=== PATIENT | female | born 1990 | race Caucasian/White ===

== ENCOUNTER 2017-05-22 05:55 | Inpatient (IN) | payer BC ==
[2017-05-22] MEDS ORDERED: LIDOCAINE 1% (PF) 10 MG/ML (30 ML SDV) SQ PRN (06:06)
[2017-05-22] MEDS ORDERED: METHYLERGONOVINE 0.2 MG/ML 1 ML AMP IM PRN (06:06)
[2017-05-22] MEDS ORDERED: CARBOPROST TROMETHAMINE 250 MCG/ML 1 ML AMP IM PRN (06:06)
[2017-05-22] MEDS ORDERED: OXYTOCIN 10 UNIT/ML 1 ML VIAL IM PRN (06:06)
[2017-05-22] MEDS ORDERED: TERBUTALINE 1 MG/ML VIAL SQ PRN (06:06)
[2017-05-22 06:13] VITALS: BMI 29.3
[2017-05-22] MEDS ORDERED: OXYTOCIN 20 UNITS/1000 ML NS 1,000 ML IV SCH (06:15)
[2017-05-22] MEDS: LACTATED RINGERS 1,000 ML IV SCH ×2 (06:18→08:07)
[2017-05-22 06:21] LABS: Basophils % (A) 0 %; Eosinophils # (A) 0.1 k/uL (0-0.7); Eosinophils % (A) 1 %; HCT 35.6 % (34.0-46.0); HGB 12.6 gm/dL (11.4-16.0); Lymphocytes # (A) 1.4 k/uL (1.0-4.8); Lymphocytes % (A) 18 %; MCH 29.3 pg (25.0-35.0); MCHC 35.4 g/dL (31.0-37.0); MCV 82.7 fL (80.0-100.0); Mean Platelet Volume 7.3; Monocytes # (A) 0.4 k/uL (0-1.0); Monocytes % (A) 5 %; Neutrophils % (A) 75 %; Platelet Count 195 k/uL (150-450); RDW 13.9 % (11.5-15.5); WBC 7.9 k/uL (3.8-10.6)
--- NOTE | 2017-05-22 07:15 | P.HPOB ---
History of Present Illness H&P Date: 05/22/17 Chief Complaint: Here for induction This is a 27-year-old white female 3 para 2002 EDC 05/25/2017 at 39-4/7 weeks' gestation. Patient presents today for induction. She has been having uterine contractions through the night, but denies fluid leakage or vaginal bleeding. Fetus is been active throughout the . Past surgical history is significant for section 2013, followed by 2015. Plan is for today. Past medical history is unremarkable. Current medications vitamins daily. ALLERGIES none known. Family history significant for seizure disorder and breast cancer as well as congenital heart defect in the patient's nephew. Social history patient is , she has never been a smoker, she denies alcohol or drug use. history is significant for blood type A+, rubella status immune. VDRL testing, hepatitis B surface antigen, gonorrhea and chlamydia cultures, Pap smear, urine culture, group B strep cultures all negative. One-hour Glucola 137. On exam this is a pleasant white female, 5 foot 8 inches, 193 pounds, blood pressure 128/60 on admission, vital signs stable. The general physical exam is within normal limits. The cervix is 4 cm dilated, 60% effaced, -2 station, vertex presentation. Artificial amniorrhexis reveals clear fluid. heart rate is consistent with reactive NST. Impression: 39-4/7 weeks intrauterine , here for induction of labor with favorable cervix. Plan: Close maternal and surveillance. Oxytocin per hospital protocol. Epidural may be placed at patient's request. Anticipate normal spontaneous vaginal delivery, . Review of Systems Constitutional: Reports as per HPI Past Medical History Past Medical History: No Reported History History of Any Multi-Drug Resistant Organisms: None Reported Past Surgical History: Section Past Anesthesia/Blood Transfusion Reactions: No Reported Reaction Past Psychological History: Anxiety, Depression Smoking Status: Never smoker Past Drug Use History: None Reported - Past Family History Father Family Medical History: No Reported History Medications and Allergies Home Medications Medication Instructions Recorded Confirmed Type Pnv,Calcium 72/Iron/Folic Acid 1 tab PO DAILY 05/22/17 05/22/17 History [ Plus Tablet] Sertraline [Zoloft] 1 tab PO DAILY 05/22/17 05/22/17 History Allergies Allergy/AdvReac Type Severity Reaction Status Date / Time No Known Allergies Allergy Verified 05/22/17 06:04 Exam - Vital Signs Vital signs: Vital Signs Temp Pulse Resp BP Pulse Ox 05/22/17 06:08 96.9 F L 81 17 128/60 99 Intake and Output 05/21/17 05/22/17 05/22/17 22:59 06:59 14:59 Other: Weight 87.543 kg Results Result Diagrams: 05/22/17 06:12 Assessment and Plan Plan: Oxytocin per hospital protocol. Epidural may be placed per patient's request. Close maternal and surveillance. Anticipate normal spontaneous vaginal delivery. Time with Patient: Less than 30
[2017-05-22] MEDS ORDERED: fentaNYL (PF) 50 MCG/ML 5 ML AMP ONE (08:09)
[2017-05-22] MEDS ORDERED: BUPIVACAINE (PF) 0.25% 30 ML VIAL ONE (08:09)
[2017-05-22] MEDS ORDERED: SODIUM CHLORIDE 0.9% 100 ML BAG ONE (08:09)
[2017-05-22] MEDS ORDERED: diphenhydrAMINE 25 MG CAP PO PRN (10:53)
[2017-05-22] MEDS ORDERED: diphenhydrAMINE 50 MG CAP PO PRN (10:53)
[2017-05-22] MEDS ORDERED: IBUPROFEN 600 MG TAB PO PRN (10:53)
[2017-05-22] MEDS ORDERED: WITCH HAZEL 1 EACH MED..PAD TOPICAL PRN (10:53)
[2017-05-22] MEDS ORDERED: BENZOCAINE/MENTHOL SPRAY 1 GM/SPRAY AEROSOL TOPICAL PRN (10:53)
[2017-05-22] MEDS ORDERED: ACETAMINOPHEN TAB 325 MG TAB PO PRN (10:53)
[2017-05-22] MEDS ORDERED: HYDROCORTISONE 2.5% RECTAL CREAM 30 GM TUBE RECTAL PRN (10:53)
[2017-05-22] MEDS ORDERED: LANOLIN CREAM 5 GM TUBE TOPICAL PRN (10:53)
[2017-05-22] MEDS ORDERED: SIMETHICONE 80 MG CHEWABLE PO PRN (10:53)
[2017-05-22] MEDS ORDERED: Acetaminophen-Codeine 300-30mg TAB PO PRN (10:53)
[2017-05-22] MEDS ORDERED: diphenhydrAMINE 50 MG/ML 1 ML VIAL IVP PRN ×2 (10:53)
[2017-05-22] MEDS ORDERED: ZOLPIDEM 5 MG TAB PO PRN (10:53)
[2017-05-22] MEDS ORDERED: diphenhydrAMINE ELIXIR 25 MG/10 ML CUP PO PRN (10:53)
--- NOTE | 2017-05-22 10:53 | P.PROBDLV ---
Vaginal Delivery Note - . Vaginal Delivery Note: This is a 27-year-old white female 3 para 2004 EDC 05/25/2017 at 39-4/7 weeks' gestation. Patient presented for induction with favorable multiparous cervix. Artificial amniorrhexis revealed clear fluid. Epidural was requested and placed without difficulty. Group B strep cultures negative, blood type A+, rubella status immune. Please see my dictated history and physical for details. Patient became completely dilated at 1019 hrs. The perineal body was prepped and draped in usual sterile fashion. heart rate was healthy and reassuring throughout the first and second stages of labor. With excellent maternal expulsive efforts the infant's head delivered occiput anterior and restituted accordingly. There was a nuchal cord 1 that was reduced on the perineal body. The left or anterior shoulder was gently delivered, at which time the oropharynx, nasopharynx, and external nares were all bulb suctioned on the perineal body. Patient was officially delivered of a liveborn male at 1027 hrs. Umbilical cord was doubly clamped and ligated, he was handed to waiting nurses for evaluation where scores of 9 and 9 at one and 5 minutes respectively were given. The placenta delivered spontaneously, it was inspected and noted to be intact with trivascular cord at 1029 hrs. Uterus is massaged. Inspection of the cervix, vagina, perineum, and periurethral areas revealed a small first-degree midline perineal laceration. This was easily repaired in the usual fashion using 3-0 Vicryl suture for excellent reapproximation. Total estimated blood loss 300 mL's. All sponge needle and enhancement counts are correct at the end of the procedure. Patient and her are requesting circumcision further infant son.
[2017-05-22] MEDS: SENNOSIDES-DOCUSATE SODIUM 1 EACH TAB PO SCH (20:00)
--- NOTE | 2017-05-23 08:02 | P.DS ---
Providers Date of admission: 05/22/17 05:55 Expected date of discharge: 05/23/17 Attending physician: Shelli Ricketts Primary care physician: Stated None Hospital Course: This is a 27-year-old white female 3 para 2004 EDC 05/25/2017 at 39-4/7 weeks' gestation. Patient presented for induction with favorable multiparous cervix, plan was for . is unremarkable, group B strep cultures negative, blood type A+, rubella status immune. Please see dictated history and physical for details. Artificial amniorrhexis revealed clear fluid. Oxytocin was started and titrated per hospital protocol. Epidural was placed per her request. She went on to swiftly deliver a liveborn male infant with scores of 9 and 9 at one and 5 minutes respectively. Infant weighed 7 lbs. 14 oz., estimated blood loss recorded at 300 mL, first-degree perineal laceration was easily repaired. Please see dictated delivery note for details. This morning the patient is doing well. She is voiding, ambulating and passing flatus without difficulty. Vital signs are stable and she is afebrile. Fundus is firm and in the midline, symmetric and 18 week size. Circumcision has been performed, is doing well. Perineal body on the patient is clean and dry, minimal to moderate lochia rubra. Pain is well controlled. Patient is therefore being discharged home today in very good condition. She will follow-up in the office with me in 6 weeks. I have reminded her no intercourse, tampons or douching. She will use [id number] ibuprofen products as needed for pain. She will call with any fevers shakes or chills, foul smelling or copious lochia, with the passage of large blood clots, or indeed with any difficulties or concerns. We have discussed the contraceptive options available, and we will discuss this further in the office. Patient Condition at Discharge: Good Plan - Discharge Summary New Discharge Prescriptions: No Action Pnv,Calcium 72/Iron/Folic Acid [ Plus Tablet] 1 tab PO DAILY Sertraline [Zoloft] 1 tab PO DAILY Discharge Medication List Pnv,Calcium 72/Iron/Folic Acid [ Plus Tablet] 1 tab PO DAILY 05/22/17 [ History] Sertraline [Zoloft] 1 tab PO DAILY 03/21/18 [History] Follow up Appointment(s)/Referral(s): Shelli Ricketts MD [STAFF PHYSICIAN] - 6 Weeks Discharge Disposition: HOME SELF-CARE
[2017-05-23 10:12] VITALS: BP 100/56; PULSE 94; RESP 18; TEMP 98.5
[2017-05-23] MEDS: SENNOSIDES-DOCUSATE SODIUM 1 EACH TAB PO SCH (13:57)
== END 2017-05-23 15:00 | disposition home or self-care (01) | DRG 775 ==
LOC: 4FBP 05:55
PROVIDERS: ADMIT Obstetrics & Gynecology; ATTEND Obstetrics & Gynecology
PROC: 10907ZC Drainage of Amniotic Fluid, Therapeutic from Products of Conception, Via Natural or Artificial Opening (ICD-10-PCS; principal; 2017-05-22)
PROC: 00HU33Z Insertion of Infusion Device into Spinal Canal, Percutaneous Approach (ICD-10-PCS; principal; 2017-05-22)
PROC: 10E0XZZ Delivery of Products of Conception, External Approach (ICD-10-PCS; principal; 2017-05-22)
PROC: 3E0R3NZ Introduction of Analgesics, Hypnotics, Sedatives into Spinal Canal, Percutaneous Approach (ICD-10-PCS; principal; 2017-05-22)
PROC: 0HQ9XZZ Repair Perineum Skin, External Approach (ICD-10-PCS; principal; 2017-05-22)
DX: O34.211 Maternal care for low transverse scar from previous cesarean delivery (principal); O99.344 Other mental disorders complicating childbirth; F32.9 Major depressive disorder, single episode, unspecified; Z37.0 Single live birth; F41.9 Anxiety disorder, unspecified; O69.81X0 Labor and delivery complicated by cord around neck, without compression, not applicable or unspecified; Z3A.39 39 weeks gestation of pregnancy; O70.0 First degree perineal laceration during delivery
CPT/HCPCS: 85025; 88307